=== PATIENT | male | born 1950 | race Caucasian/White ===

== ENCOUNTER 2017-12-18 07:08 | Day surgery (SDC) | payer MEDICARE, BC ==
[~2017-12-18 07:08] MED LIST: Sodium Chloride 0.9% 5 ML Syringe FLUSH PRN
[2017-12-18] MEDS ORDERED: Lidocaine 1% with EPINEPHrine 1:100,000 20 ML MDV ONE ×2 (07:35→07:36)
[2017-12-18] MEDS ORDERED: Bupivacaine 0.5%/EPINEPHrine 1:200,000 30 ML SDV ONE (07:35)
[2017-12-18] MEDS ORDERED: ceFAZolin 1 GM Vial ONE ×2 (07:37→07:53)
[2017-12-18] MEDS: Lactated Ringers 1,000 ML IV SCH (07:42)
[2017-12-18] MEDS ORDERED: Midazolam 1 MG/ML 2 ML SDV ONE (07:53)
[2017-12-18] MEDS ORDERED: fentaNYL 100 MCG/2 ML SDV ONE (07:54)
[2017-12-18] MEDS ORDERED: Propofol 200 MG/20 ML SDV ONE ×2 (07:54→09:25)
[2017-12-18] MEDS ORDERED: Propofol 200 MG/20 ML SDV IV ONE (08:25)
[2017-12-18] MEDS ORDERED: ceFAZolin 1 GM Vial IV ONE (08:25)
[2017-12-18] MEDS ORDERED: fentaNYL 100 MCG/2 ML SDV IV ONE (08:25)
[2017-12-18] MEDS ORDERED: Midazolam 1 MG/ML 2 ML SDV IV ONE (08:25)
[2017-12-18] MEDS: ceFAZolin 1 GM Vial ONE (08:58)
[2017-12-18] MEDS: Sodium Chloride 0.9% 20 ML SDV ONE (08:59)
[2017-12-18] MEDS: Lidocaine 1% with EPINEPHrine 1:100,000 20 ML MDV INFILT ONE (09:00)
[2017-12-18] MEDS ORDERED: Lactated Ringers 1,000 ML ONE (09:12)
--- NOTE | 2017-12-18 11:38 | PCM.PRNOTE ---
- Free Text/Narrative Note: INFORMED CONSENT: The patient is here today for elective right inguinal herniorrhaphy. The operative procedure, anesthesia and risks of both are completely explained to the patient. These include infection, pain, bleeding, recurrence, numbness and other unknown complications. The patient wished to proceed. The patient was kept in the supine position and the inguinal area was thoroughly prepped and draped in the usual fashion. An incision was made over the right inguinal area, parallel to the inguinal ligament. The skin incision was deepened through the subcutaneous tissue, deep fascia and the external oblique was opened along the line of the skin incision. The cord structures were identified and kept out of harms way. We also identified the ilioinguinal nerve and the inguinal branch of the genitofemoral nerve. These two structures were kept out of harms way as well. We then dissected the medial portion of the cord and there was a fairly significant hernial sac which was opened. The contents were mostly omental tissue that was pushed back into the abdominal cavity. A high ligation of the sac was performed with 0 silk sutures. The excess sac was excised and sent away for histology. Palpation of the medial portion of the floor indicated a defect. A Marlex mesh was then cut down to size and placed to fortify the defect of the floor and the direct portion of the hernia. The mesh was attached to the conjoined tendon superiorly, Jef's ligament medially and the reflected portion of the inguinal ligament inferiorly. The wound was irrigated, small bleeders were cauterized and the external oblique was closed over the cord structures using running 0 silk sutures. The subcutaneous tissue was closed with 0 Polysorb suture and the skin was closed using 4.0 Polysorb suture. A Sterile pressure dressing was applied, the patient tolerated the procedure well and there were no operative complications. Blood loss was negligible. Sponge, needle and instrument count was correct. The patient was transferred to the recovery room in excellent condition.
[2017-12-18] MEDS: Ketorolac 30 MG/ML SDV IVPUSH ONE (15:50)
== END 2017-12-18 17:12 | disposition home or self-care (01) ==
LOC: KA.SDS 07:08
PROVIDERS: ATTEND Family Medicine
DX: K40.90 Unilateral inguinal hernia, without obstruction or gangrene, not specified as recurrent (principal); E66.3 Overweight; M17.11 Unilateral primary osteoarthritis, right knee; N52.9 Male erectile dysfunction, unspecified; G89.29 Other chronic pain; M54.5 Low back pain; J30.9 Allergic rhinitis, unspecified; Z79.51 Long term (current) use of inhaled steroids; Z79.899 Other long term (current) drug therapy; Z68.28 Body mass index [BMI] 28.0-28.9, adult
CPT/HCPCS: 00830; 88304; C1781; J0690; J1885; J2250; J2704; J3010; J7120

== ENCOUNTER 2021-03-30 11:33 | Day surgery (SDC) | payer MEDICARE, BC ==
[~2021-03-30 11:33] MED LIST changes: +Lactated Ringers 1,000 ML IV SCH; +Sodium Chloride 0.9% 10 ML Syringe FLUSH PRN; -Sodium Chloride 0.9% 5 ML Syringe FLUSH PRN
[2021-03-30] MEDS ORDERED: Ondansetron 4 MG/2 ML SDV IV ONE (11:34)
[2021-03-30] MEDS ORDERED: Neostigmine Methylsulfate 10 MG/10 ML MDV IV ONE (11:34)
[2021-03-30] MEDS ORDERED: Rocuronium 50 MG/5 ML Vial IV ONE (11:34)
[2021-03-30] MEDS ORDERED: Albuterol 8 GM Inhaler INH ONE ×2 (11:34→14:13)
[2021-03-30] MEDS ORDERED: Succinylcholine 200 MG/10 ML MDV IV ONE (11:34)
[2021-03-30] MEDS ORDERED: ceFAZolin 1 GM Vial ONE ×3 (12:17→13:30)
[2021-03-30] MEDS ORDERED: Midazolam 1 MG/ML 2 ML SDV ONE (12:18)
[2021-03-30] MEDS ORDERED: Glycopyrrolate 0.2 MG/ML SDV ONE (12:18)
[2021-03-30] MEDS ORDERED: Propofol 200 MG/20 ML SDV ONE ×2 (12:18→14:13)
[2021-03-30] MEDS ORDERED: Neostigmine Methylsulfate 10 MG/10 ML MDV ONE (12:18)
[2021-03-30] MEDS ORDERED: fentaNYL 250 MCG/5 ML SDV ONE (12:18)
[2021-03-30] MEDS ORDERED: Lactated Ringers 1,000 ML ONE (12:19)
[2021-03-30] MEDS ORDERED: Bupivacaine 0.5%/EPINEPHrine 1:200,000 30 ML SDV ONE (12:56)
[2021-03-30] MEDS ORDERED: Bupivacaine 0.5%/EPINEPHrine 1:200,000 30 ML SDV INFILT ONE (13:00)
[2021-03-30] MEDS ORDERED: Sodium Chloride 0.9% 20 ML SDV ONE (13:30)
[2021-03-30] MEDS ORDERED: Famotidine 20 MG Tab PO ONE (16:09)
[2021-03-30] MEDS ORDERED: Ketorolac 30 MG/ML SDV IVPUSH ONE (16:09)
[2021-03-30] MEDS ORDERED: Morphine 4 MG/ML Syringe IVPUSH ONE (16:09)
--- NOTE | 2021-03-30 16:42 | PCM.OPNOTE ---
- General Post-Op/Procedure Note Date of Surgery/Procedure: 03/30/21 Operative Procedure(s): Left inguinal hernia repair. Findings: Moderately enlarged left inguinal hernia, both direct and indirect moderate is present. Repair performed using Bard polypropylene mesh with a keyhole. Pre Op Diagnosis: Moderately enlarged left inguinal hernia. Anesthesia Technique: General ET Tube, General Mask Primary Surgeon: Marianne Monson Condition: Good Free Text/Narrative:: INFORMED CONSENT: The patient is here today for elective inguinal herniorrhaphy. The operative procedure, anesthesia and risks of both are completely explained to the patient. These include infection, pain, bleeding, recurrence, numbness and other unknown complications. The patient wished to proceed. The patient was kept in the supine position and the inguinal area was thoroughly prepped and draped in the usual fashion. The proposed site of the incision was infiltrated with a few cc of Xylocaine 1% solution and an 7 cms incision was made over the inguinal area, slightly superior and parallel to the inguinal ligament. The skin incision was deepened through the subcutaneous tissue, deep fascia and the external oblique was opened along the line of the skin incision. The cord structures were identified and kept out of harms way via a aleksey drain. We also identified the ilioinguinal, iliohypogastric nerve and the genital branch of the genitofemoral nerves and kept these structures out of harm's way . We then dissected the medial portion of the cord and there was a fairly significant indirect hernial sac which was opened. The contents were mostly omental tissue that were pushed back into the abdominal cavity. A high ligation of the sac was performed with 0 silk suture. The excess sac was excised and sent away for histology. Palpation of the medial portion of the floor indicated a moderate defect. A large Bard prepared polypropylene mesh was utilized to fortify the defect of the floor and the direct portion of the hernia. The mesh was attached medially to the pubic symphysis with three 2 0 nylon sutures. Superiorly, it was attached to the "conjoined" tendon, inferiorly to the reflected portion of the inguinal ligament and laterally at the internal ring. This was done in the standard Ajay approach. I made sure there was no tension on the cord structures and that the mesh was stable without tension.. Approximately 5 cc of Marcaine 0.5% was instilled into the tissues .The wound was irrigated, small bleeders were cauterized and the external oblique was closed over the cord structures using running 0 silk suture. The subcutaneous tissue was closed with 0 Polysorb suture and the skin was closed using stainless steel skin clips. A Sterile pressure dressing was applied, the patient tolerated the procedure well and there were no operative complications. Blood loss was negligible. Sponge, needle and instrument count was correct. The patient was transferred to the recovery room in an excellent condition.
== END 2021-03-30 18:10 | disposition home or self-care (01) ==
LOC: KA.SDS 11:33
PROVIDERS: ATTEND Family Medicine
DX: K40.90 Unilateral inguinal hernia, without obstruction or gangrene, not specified as recurrent (principal); R97.20 Elevated prostate specific antigen [PSA]; J30.89 Other allergic rhinitis; I10 Essential (primary) hypertension; E66.9 Obesity, unspecified; E78.00 Pure hypercholesterolemia, unspecified; Z68.32 Body mass index [BMI] 32.0-32.9, adult; Z98.890 Other specified postprocedural states; Z87.891 Personal history of nicotine dependence; Z79.899 Other long term (current) drug therapy
CPT/HCPCS: 00830; 49505; A9270; C1781; J0330; J0690; J1885; J2250; J2270; J2405; J2704; J2710; J3010; J3490; J7120; 88302